=== PATIENT | female | born 1995 | race Caucasian/White ===

== ENCOUNTER 2018-12-27 21:03 | Observation (INO) ==
[2018-12-27] MEDS ORDERED: Lactated Ringers 1,000 ML PRIMARY IV ONE (22:28)
[2018-12-27] MEDS ORDERED: Lactated Ringers 500 ML PRIMARY IV ONE (22:28)
[2018-12-27] MEDS ORDERED: Lactated Ringers-OB Dept 1,000 ML PRIMARY IV SCH (22:30)
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
[2018-12-27 22:32] LABS: Amnisure NEGATIVE (NEGATIVE)
[2018-12-27 22:47] LABS: Hematocrit [HCT] 36.2 % (37.0-47.0)
--- NOTE | 2018-12-27 23:17 | DI ---
EXAM: US Uterus, Limited CLINICAL HISTORY: Contractions: TECHNIQUE: Real-time ultrasound of the maternal uterus (limited) with image documentation. COMPARISON: No relevant prior studies available. FINDINGS: MARITZA: The estimated age by biometry is 28 weeks 6 days with an estimated date of delivery of 03/15/2019. EFW: The estimated weight is 1272 g. Position: A single intrauterine gestation is identified in the transverse position. Positive heart tones are noted at 134 bpm. Biometrics: The femur length is 5.4 cm consistent with 28 weeks 5 days. Placenta: The placenta is anterior without evidence of previa. Amniotic fluid: The BLAKE is normal at 15.7 cm. Cervix: The cervix appears to be closed measuring 4.7 cm in length. Other findings: The biparietal diameter is 7.1 cm consistent with 28 weeks 4 days. Head circumference is 26.7 cm consistent with 29 weeks 1 day. The abdominal circumference is 24.5 cm consistent with 28 weeks 6 days. IMPRESSION: 1. The cervix appears to be closed measuring 4.7 cm in length. 2. The placenta is anterior without evidence of previa. 3. A single intrauterine gestation is identified in the transverse position. Positive heart tones are noted at 134 bpm. 4. The BLAKE is normal at 15.7 cm.
[2018-12-27 23:39] LABS: BASOPHILS # (AUTO) 0.05 10*3/UL; BASOPHILS % (AUTO) 0.4 % (0-1); EOSINOPHILS % (AUTO) 1.5 % (0-8); Hemoglobin [HGB] 12.6 g/dL (12.0-16.0); LYMPHOCYTES # (AUTO) 2.13 10*3/uL; MEAN CORPUSCULAR HEMOGLOBIN 34.2 PG (27-31); MEAN CORPUSCULAR HGB CONC 34.8 g/dL (33-37); MEAN CORPUSCULAR VOLUME 98.4 FL (81-99); MEAN PLATELET VOLUME 9.9 FL (7.4-12.2); MONOCYTES # (AUTO) 0.93 10*3/UL (0.3-0.8); MONOCYTES % (AUTO) 6.8 % (5-15); NEUTROPHILS # (AUTO) 10.14 10*3/UL; NEUTROPHILS % (AUTO) 74.4 % (50-80); RED BLOOD COUNT 3.68 10^6/uL (4.20-5.40)
[2018-12-27 23:40] LABS: PLATELET MORPHOLOGY COMMENT NORMAL MORPHOLOGY (NORM); RBC MORPHOLOGY COMMENT NORMAL MORPHOLOGY (NORM); WBC MORPHOLOGY COMMENT NORMAL MORPHOLOGY (NORM)
[2018-12-27 23:54] LABS: BLOOD UREA NITROGEN 12 mg/dL (7-22); SERUM ALBUMIN 3.3 g/dL (3.5-4.8)
[2018-12-28 00:14] LABS: BILIRUBIN,URINE NEGATIVE (NEG); CLARITY,URINE CLEAR (CLEAR); COLOR,URINE YELLOW; GLUCOSE, URINE (UA) NEGATIVE (NEG); OCCULT BLOOD,URINE NEGATIVE (NEG); PH,URINE 6.5 (5.0-8.5); PROTEIN,URINE NEGATIVE (NEG); UROBILINOGEN,URINE 0.2 mg/dL (0.2)
[2018-12-28 00:18] LABS: BACTERIA,URINE RARE; SQUAMOUS EPITHELIAL CELL,UR RARE; URINE SAMPLE TYPE CLEAN CATCH URINE
[2018-12-28] MEDS ORDERED: BETAMET ACET/BETAMET NA PH 6 MG/1 ML - 5 ML IM SCH (01:00)
[2018-12-28] MEDS ORDERED: ONDANSETRON 4 MG/2 ML VIAL IVP PRN (01:01)
[2018-12-28] MEDS ORDERED: Ondansetron ODT Tab 4 MG TAB PO PRN (01:01)
[2018-12-28] MEDS ORDERED: CALCIUM CARBONATE 500 MG (TUMS) CHEWABLE TABLET PO PRN (01:01)
[2018-12-28] MEDS ORDERED: LIDOCAINE W/ SODIUM BICARB 0.5 ML SYR SUBD PRN (01:01)
[2018-12-28] MEDS ORDERED: NIFEdipine 10 MG CAPSULE PO ONE ×2 (01:02→01:30)
[2018-12-28] MEDS: NIFEdipine 10 MG CAPSULE PO SCH ×2 (05:31→11:25)
[2018-12-29] MEDS ORDERED: Prenatal Multivitamin Tab 1 TAB TAB PO SCH (09:00)
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
== END 2018-12-28 07:00 | disposition home or self-care (01) ==
LOC: OBOP 21:03 → OBIP 21:03
PROVIDERS: ADMIT Obstetrics & Gynecology; ATTEND Obstetrics & Gynecology